=== PATIENT | female | born 1940 | race Caucasian/White ===

== ENCOUNTER 2016-07-16 10:00 | Inpatient (IN) | payer MEDICARE, BC ==
[~2016-07-16] VITALS: Ht 157.5 cm; Wt 72.9 kg
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
--- NOTE | ~2016-07-16 | HP ---
PATIENT'S NAME: ISRA COOK [facility] AGE: 76 Y [address] ROOM: G6303 [place], [place] [address] LOCATION: GPCU ADMIT DATE: 07/16/2016 History & Physical DISCHARGE DATE: FAMILY PHYSICIAN: PHYSICIAN, UNKNOWN ATTENDING PHYSICIAN: WALLY MORALES DATE OF SERVICE: CHIEF COMPLAINT: History of fall and rapid heart rate. HISTORY OF PRESENT ILLNESS: This is a 76-year-old female who was transferred from [facility] for higher level of care. As per history obtained from the patient and the referring physician, the patient had a presyncopal episode about 2 days ago. She was not lightheaded prior to the fall. She did not hit her head or lose consciousness at that point of time. The patient was then taken to [facility] where a CT head was done and was found to be normal. The patient was admitted for a couple of days at [facility]. Last morning, the patient ended up developing atrial fibrillation with rapid ventricular rate. She was placed on a Cardizem drip at that point of time to control her heart rate. The patient then developed hypotension. Since the patient was not doing well, the patient was transferred to [facility] for higher level of care. At the time of my examination, the patient states that she did have palpitations earlier this morning, but that is now resolved. She complains of slight shortness of breath. She is currently on 1-2 L of oxygen via nasal cannula. Denies any head trauma or loss of consciousness. She states that she was lightheaded when she had a syncopal episode 2 days ago. Denies any abdominal pain, denies diarrhea or constipation, denies fever or cough, denies any other complaints. She has a history of rheumatoid arthritis. No other complaints at this point in time. REVIEW OF SYSTEMS: A 10-point review of systems was done and was otherwise negative except as mentioned above. HOME MEDICATIONS: Per [facility]. FAMILY HISTORY: Father with heart disease, sister with unknown cancer, and brother with heart disease. PATIENT'S NAME: ISRA COOK [facility] AGE: 76 Y [address] ROOM: G[address] [place], [place] [address] LOCATION: GPCU ADMIT DATE: 07/16/2016 History & Physical DISCHARGE DATE: FAMILY PHYSICIAN: PHYSICIAN, UNKNOWN ATTENDING PHYSICIAN: WALLY MORALES PAST SURGICAL HISTORY: 1. Bilateral TKA. 2. Cholecystectomy. 3. Hysterectomy. 4. Right cataract insertion. PAST MEDICAL HISTORY: 1. Hypertension. 2. History of irregular heart rhythm. 3. Rheumatoid arthritis. 4. GERD. SOCIAL HISTORY: Denies smoking or alcohol use currently. She stays independently. PHYSICAL EXAMINATION: VITAL SIGNS: Temperature 97.6, pulse 102 and irregular, respirations 16, blood pressure 183/87, and saturation 93% on 2 L nasal cannula oxygen. GENERAL: The patient is alert and oriented x3. Answers all questions appropriately, in no acute distress. HEENT: Head: Normocephalic, atraumatic. Pupils equal, round, reactive to light. Extraocular muscles are intact. Oropharynx moist. NECK: Supple. No nuchal rigidity. HEART: Tachycardic. Irregular rhythm. LUNGS: Clear to auscultation bilaterally. ABDOMEN: Soft, nontender, and nondistended. Bowel sounds are present. EXTREMITIES: No clubbing, cyanosis, or edema. VASCULAR: Pulses 2+ distally bilaterally. NEUROLOGIC: The patient is alert and oriented x3. Pupils are equal, round, and reactive to light bilaterally. The patient recently had cataract surgery about 3 weeks ago. Cranial nerves 2 through 12 grossly intact. Deep tendon flexes 2+/4. Gait not assessed. Strength 5/5, bilateral upper and lower extremities. DIAGNOSTIC STUDIES: Studies were reviewed from the referral hospital. The patient had a CMP on 07/16/2016 that showed sodium 134, potassium 4.1, chloride 99, bicarb 25, glucose 141, BUN 21, creatinine 1.09, calcium 8.9, total protein 6.6, albumin 3.0, alkaline phosphatase 120, ALT 22, AST 38, total bilirubin 1.0, and GFR 49. Magnesium 1.4 CPK 278, CK-MB 0.9, TSH 2.12. A CBC showed a white count of 9.9, hemoglobin 11.3, hematocrit 32.8, and platelets 230. EKG showed atrial flutter/tachycardia with a rapid ventricular response and a rate of 173 beats per minute. Troponin I less than 0.05. The patient had a CT head done when she presented at the referral hospital now. CT head showed no acute intracranial abnormality, age-appropriate cerebral atrophy with minor chronic PATIENT'S NAME: ISRA COOK [facility] AGE: 76 Y [address] ROOM: [address] [place] [address] LOCATION: GPCU ADMIT DATE: 07/16/2016 History & Physical DISCHARGE DATE: FAMILY PHYSICIAN: PHYSICIAN, UNKNOWN ATTENDING PHYSICIAN: WALLY MORALES microvascular ischemic gliosis in the periventricular white matter was noted. Studies were done at [facility]: A 2D echocardiogram was done that showed normal left ventricular contractility with ejection fraction of more than 60% and grade 1 diastolic dysfunction noted. CPK 228, troponin I less than 0.04, proBNP 770. CBC showed a white count of 11.4, hemoglobin 12.3, hematocrit 37.9, and platelets 282. CMP showed sodium 137, potassium 4.2, chloride 98, bicarb 27, BUN 17, creatinine 1.1, and glucose 116. Calcium 9.6, total protein 7.4, albumin 3.6, AST 36, ALT 23, alkaline phosphatase 141, and total bilirubin 1.1. Magnesium 1.6, anion gap 16.2, globulin 3.8, GFR 48. PT 10.3, INR 1.0, and PTT 26. UA showed specific gravity 1.005, pH of 6.5, otherwise negative. CK-MB 1.3. D-dimer elevated at 0.88. V/Q scan pending at this point of time. Chest x-ray was done on admission and after PICC line placement as well and showed PICC line in place, mild elevation of the right hemidiaphragm noted, no vascular congestion or acute infiltrate was noted. EKG done at [facility] initially showed sinus tachycardia with a rate of 113 beats per minute and no acute ST changes, this was repeated later when the patient had tachycardia and showed sinus tachycardia. ASSESSMENT AND PLAN: A 76-year-old female presenting with paroxysmal atrial fibrillation and tachycardia. 1. Status post fall. The patient had a fall. Unsure if the fall was related to paroxysmal atrial fibrillation. A CT head is negative. This was the presyncopal fall. 2. History of rheumatoid arthritis. Continue home medication. 3. Paroxysmal atrial fibrillation. The patient has history of paroxysmal atrial fibrillation, she has been flipping in and out of atrial fibrillation. She has atrial fibrillation with rapid ventricular rate. She was placed on Cardizem drip. I will utilize Cardizem drip for now. She also received a loading dose of digoxin. Monitor closely for now. Cardiology consult will be obtained for the patient. 4. Presyncopal episode. We will also obtain a carotid Doppler for the patient. CT head is negative. 2D echo has been done. This likely appears to be likely secondary to a cardiac cause. 5. Hypotension. Hypotension resolved with IV fluids. Monitor closely. 6. Code status. Full code discussed with the patient at the time of admission. 7. Hypomagnesemia. I will replace magnesium. 8. Hyperkalemia. The patient had presented with hyperkalemia at the referral hospital. Over the past couple of days, hyperkalemia has resolved. Monitor BMP. PATIENT'S NAME: ISRA COOK [facility] AGE: 76 Y [address] ROOM: [place] [address] [facility] ADMIT DATE: 07/16/2016 History & Physical DISCHARGE DATE: FAMILY PHYSICIAN: PHYSICIAN, UNKNOWN ATTENDING PHYSICIAN: WALLY MORALES WALLY MORALES MD MT/roslyn /[id number] D: [id number] T: [id number] HISTORY & PHYSICAL
--- NOTE | ~2016-07-16 | ENPV ---
Vascular Lower Extremities DVT Study Procedure Demographics Patient Name ISRA COOK Date of Study 07/17/2016 Patient Number [id number] Gender Female Date of 1940 Age 76 Visit Number [id number] Height 62 Accession Number [id number] Weight 160 Referring Neisha Kearney MD Physician Liana De Paz APRN Physician Physician Ordering Gebremicheal Stone Gluer Physician [employer] Chief Creative Officer Olamide Arias, RT,RVT,RDCS Meliton Olsen Conclusions Summary No evidence of deep vein thrombosis or superficial thrombophlebitis in the lower extremities bilaterally . Procedure Type of Study: Veins:Lower Extremities DVT Study, Venous Duplex Lower Extremity Bilateral. Indications for Study:Pulmonary embolism. Appropriate Use Criteria:8 Patient Status:STAT. Study Location:Inpatient Portable. Technical Quality:Good visualization. Velocities are measured in cm/s ; Diameters are measured in cm Right Lower Extremities DVT Study Measurements Right 2D and Doppler Measurements + + + + +------+------+ + !Location !Visualized!Compressibility!Thrombosis!Signal!Reflux!Reflux ! ! ! ! ! ! ! !(sec) ! + + + + +------+------+ + !GSV Thigh !Yes !Yes !None !Phasic! ! ! + + + + +------+------+ + !Common !Yes !Yes !None !Phasic! ! ! !Femoral ! ! ! ! ! ! ! + + + + +------+------+ + !Prox !Yes !Yes !None !Phasic! ! ! !Femoral ! ! ! ! ! ! ! + + + + +------+------+ + !Mid Femoral!Yes !Yes !None !Phasic! ! ! + + + + +------+------+ + !Dist !Yes !Yes !None !Phasic! ! ! !Femoral ! ! ! ! ! ! ! + + + + +------+------+ + !Popliteal !Yes !Yes !None !Phasic! ! ! + + + + +------+------+ + !Gastroc !Yes !Yes !None ! ! ! ! + + + + +------+------+ + !PTV !Yes !Yes !None ! ! ! ! + + + + +------+------+ + !Peroneal !Yes !Yes !None ! ! ! ! + + + + +------+------+ + Left Lower Extremities DVT Study Measurements Left 2D and Doppler Measurements + + + + +------+------+ + !Location !Visualized!Compressibility!Thrombosis!Signal!Reflux!Reflux ! ! ! ! ! ! ! !(sec) ! + + + + +------+------+ + !GSV Thigh !Yes !Yes !None !Phasic! ! ! + + + + +------+------+ + !Common !Yes !Yes !None !Phasic! ! ! !Femoral ! ! ! ! ! ! ! + + + + +------+------+ + !Prox !Yes !Yes !None !Phasic! ! ! !Femoral ! ! ! ! ! ! ! + + + + +------+------+ + !Mid Femoral!Yes !Yes !None !Phasic! ! ! + + + + +------+------+ + !Dist !Yes !Yes !None !Phasic! ! ! !Femoral ! ! ! ! ! ! ! + + + + +------+------+ + !Popliteal !Yes !Yes !None !Phasic! ! ! + + + + +------+------+ + !Gastroc !Yes !Yes !None ! ! ! ! + + + + +------+------+ + !PTV !Yes !Yes !None ! ! ! ! + + + + +------+------+ + !Peroneal !Yes !Yes !None ! ! ! ! + + + + +------+------+ + Signature dtt: JERAD GREEN dtd: 07/17/16 1508 Physician Self Edjanene
--- NOTE | ~2016-07-16 | ECHO ---
Transthoracic Echocardiography Report (TTE) Demographics Patient Name ISRA COOK Date of Study 07/16/2016 Patient Number [id number] Visit Number [id number] Date of 1940 Room Number G6303 Accession Number [id number] Gender Female Age 76 year(s) Referring Neisha Dorsey MD [employer] Stanton Fu Physician Physician Interpreting [employer] Rn Care Coordinator Physician Rishi Supervising Ordering Physician Neisha Dorsey MD, MD/P Nurse Stress Clinician Oncology Conclusions Contractility Score Summary Normal Left Ventricular contractility was noted. Summary Technically difficult study with suboptimal images. Patient was tachycardic during the study Overall left ventricle appears hyperdynamic with estimated ejection fraction > 60%;. Diastolic assessment reveals Grade I diastolic dysfunction. IVC measures 1.68 cm with inspiratory collapse. Procedure Type of Study TTE procedure:2D Echocardiogram, M-Mode, Doppler , Color Doppler. Procedure Date Date: 07/16/2016 Start: 01:09 PM Study Location: Inpatient Portable Technical Quality: Adequate visualization Indications:CHF and Atrial fibrillation. Patient Status: Routine HR: 102 bpm BP: 147/90 mmHg M-Mode/2D Measurements LV Diastolic Dimension: 4.6 cm LV Systolic Dimension: 2.91 cm LV Septum Diastolic: 0.75 cm LV PW Diastolic: 0.85 cm AO Root Dimension: 2.8 cm Cardiac Output: 6.6 l/min LA Dimension: 2.6 cm EF Estimated: 60 % LVOT: 2 cm LVOT VTI: 20.6 cm RV Base: 2.74 cm LV Stroke volume: 64.68 ml RV Length: 6.23 cm TAPSE: 1.35 cm TDI-S': 19.5 cm/s Doppler Measurements AV Peak Velocity: 1.54 m/s MV Peak E-Wave: 0.53 m/s AV Peak Gradient: 9.49 mmHg MV Peak A-Wave: 0.88 m/s AV Mean Gradient: 6 mmHg MV E/A Ratio: 0.6 LVOT Peak Velocity: 1.41 m/s MV P1/2t: 55 msec TR Gradient:6.66 mmHg Estimated RAP:8 mmHg Estimated PASP: 14.66 mmHg Estimated RVSP: 15 mmHg A' Septal Velocity: 0.1 m/s E' Septal Velocity: 0.04 m/s A' Lateral Velocity: 0.11 m/s E' Lateral Velocity: 0.09 m/s Findings Left Ventricle The left ventricle is normal in size . Diastolic assessment reveals Grade I diastolic dysfunction. Right Ventricle Normal right ventricle structure and function. Left Atrium Normal left atrial size. Right Atrium Normal right atrial size. IVC measures 1.68 cm with inspiratory collapse. Mitral Valve Mild mitral regurgitation by color Doppler. Mild mitral annular calcification. Aortic Valve Normal aortic valve structure and function. Tricuspid Valve Trivial tricuspid regurgitation by color Doppler. Pulmonic Valve Normal pulmonic valve structure and function. Pericardial Effusion No evidence of pericardial effusion. Miscellaneous The ascending aorta maximum diameter measures 3.2 cm. Pleural Effusion No evidence of pleural effusion. Contractility Score LV regional wall motion:(0-Non visualized 1-Normal 2-Hypokinesis 3-Akinesis 4-Dyskinesis 5-Aneurysm) Signature dtt: RISHI PA dtd: 07/16/16 1309 Physician Self Edit
--- NOTE | ~2016-07-16 | DS ---
PATIENT'S NAME: ISRA COOK [facility] AGE: 76 Y [address] ROOM: [place] [address] LOCATION: GPCU ADMIT DATE: 07/16/2016 Discharge Summary DISCHARGE DATE: 07/19/2016 FAMILY PHYSICIAN: Katt Gaines APRN ATTENDING PHYSICIAN: Poncho Driver PRINCIPAL DIAGNOSES: 1. New-onset atrial fibrillation with rapid ventricular rate. 2. Presyncope. 3. Hypertension. 4. Nocturnal hypoxia. BRIEF HOSPITAL COURSE: The patient is a 76-year-old female who is admitted from [place] after she initially presented there with presyncopal episode and was noted to be hypertensive; and upon examination, she was found to be in atrial fibrillation with rapid ventricular rate. The patient was admitted and initially started on a Cardizem drip for rate control and was evaluated by Cardiology and at the same time was also started on a heparin for anticoagulation. The patient was subsequently started on sotalol per tire inspector's recommendation and overnight converted into a sinus rhythm. The patient has been observed after she converted into a sinus rhythm overnight and has maintained sinus rhythm. The patient was able to get up and walk around without symptoms of syncope, dizziness, or lightheadedness. The patient today denies any chest pain, shortness of breath, dizziness, lightheadedness as well while at rest. She had been started on Xarelto for AFib prophylaxis as well as PE. The patient was evaluated with a V/Q scan for PE for possibly explaining the trigger for the atrial fibrillation and the V/Q scan showed [id number] probability for PE. Considering the patient is needing long-term anticoagulation, we have gone ahead and treated her with Xarelto for PE treatment, which after 21 days will be the same as AFib stroke prophylaxis dose. I have had a lengthy discussion with the patient explaining the risks and benefits of being on a blood thinner and the patient was fully aware of signs and symptoms of any potential brain bleed. The patient is being discharged in stable condition. DISPOSITION: Home. FOLLOW UP: She will follow up with Dr. Jesus, Cardiology, next week. Greater than 30 minutes were spent in discharge planning. JACOB LINDQUIST MD PATIENT'S NAME: ISRA COOK [facility] AGE: 76 Y [address] ROOM: [address] [place] [address] [facility] ADMIT DATE: 07/16/2016 Discharge Summary DISCHARGE DATE: 07/19/2016 FAMILY PHYSICIAN: Katt Gaines APRN ATTENDING PHYSICIAN: Poncho Driver/roslyn /[id number] d: 07/19/16 225 t: 08/05/16 0927, DISCHARGE SUMMARY
--- NOTE | ~2016-07-16 | PUL ---
PATIENT'S NAME: ISRA COOK [facility] AGE: 76 Y [address] ROOM: [address] [address] LOCATION: GPCU ADMIT DATE: 07/16/2016 Pulmonary DISCHARGE DATE: 07/19/2016 FAMILY PHYSICIAN: Katt Gaines APRN ATTENDING PHYSICIAN: Poncho Driver NAME OF PROCEDURE: Overnight Pulse Oximetry DATE OF PROCEDURE: July 18 to July 19, 2016 REASON FOR EXAM: Nocturnal hypoxemia RESULTS: The test was started on room air, but supplemental oxygen at 1 liter/minute was added approximately 3 hours and a half into the study. The recording time was 9 hours, 37 minutes, and 4 seconds, with a total valid sampling time of 9 hours, 23 minutes and 44 seconds. The highest pulse was 74, lowest pulse was 56, with a mean pulse of 63. The highest SpO2 was 99%, lowest SpO2 was 78%, with a mean SpO2 of 92.1%. The patient spent 1 hour, 59 minutes, and 40 seconds with SpO2 less than 89%, representing 21.2% of the total sleep time. The desaturation event index was elevated at 15.6. PHYSICIAN INTERPRETATION: The patient has evidence of significant nocturnal hypoxia and would qualify for supplemental oxygen as per Medicare criteria. However, because of the severity of her nocturnal hypoxia with an elevated desaturation event index a sleep study is recommended at this time. MD PETAR LEYVA/stacia /[id number] dtt: 07/23/16 1401 , KIRTI CASAREZ dtd: 07/23/16 1149
--- NOTE | ~2016-07-16 | ECHO ---
Transthoracic Echocardiography Report (TTE) Demographics Patient Name ISRA COOK Date of Study 07/17/2016 Patient Number [id number] Visit Number [id number] Date of 1940 Room Number G6303 Accession Number [id number] Gender Female Age 76 year(s) Referring Edin Weaver MD Yard Caller Vickie Alexis Physician Neisha Olsen Physician Interpreting Edin Weaver MD Administrative Coordinator Physician Supervising Ordering Physician Edin Weaver MD, MD/MLP Nurse Stress Rent Control Office Manager Conclusions Contractility Score Summary Normal Left Ventricular contractility was noted. Summary The estimated left ventricular ejection fraction is 65%. The left ventricle is normal in size . Diastolic assessment reveals Grade I diastolic dysfunction. There is mild aortic regurgitation by color Doppler. Mild tricuspid regurgitation by color Doppler. Procedure Type of Study TTE procedure:2D Echocardiogram, M-Mode, Doppler , Color Doppler. Procedure Date Date: 07/17/2016 Start: 08:54 AM Study Location: Inpatient Portable Technical Quality: Adequate visualization Indications:Paroxysmal a-fib. Appropriate Use Criteria: 9 Patient Status: Routine HR: 69 bpm BP: 126/79 mmHg M-Mode/2D Measurements LV Diastolic Dimension: 4.6 cm LV Systolic Dimension: 2.62 cm LV Septum Diastolic: 1 cm LV PW Diastolic: 0.91 cm AO Root Dimension: 2.6 cm Cardiac Output: 5.31 l/min AV Cusp Separation: 2 cm RV Diastolic Dimension: 3.67 cm LA volume: 42 ml LVOT: 2 cm RV Base: 3.28 cm LVOT VTI: 24.5 cm RV Mid: 2.89 cm LV Stroke volume: 76.93 ml TAPSE: 1.98 cm TDI-S': 12.5 cm/s Doppler Measurements AV Peak Velocity: 1.39 m/s MV Peak E-Wave: 0.61 m/s AV Peak Gradient: 7.73 mmHg MV Peak A-Wave: 0.84 m/s AV Mean Gradient: 4 mmHg MV E/A Ratio: 0.72 LVOT Peak Velocity: 1.16 m/s MV P1/2t: 63 msec AV P1/2t: 453 msec TR Gradient:31.58 mmHg PV Peak Velocity: 0.76 m/s Estimated RAP:3 mmHg PV Peak Gradient: 2.33 mmHg Estimated RVSP: 35 mmHg Estimated PASP: 34.58 mmHg E' Septal Velocity: 0.06 m/s A' Septal Velocity: 0.08 m/s E' Lateral Velocity: 0.06 m/s A' Lateral Velocity: 0.12 m/s Findings Left Ventricle The left ventricle is normal in size . Diastolic assessment reveals Grade I diastolic dysfunction. Right Ventricle Mildly dilated right ventricle. Left Atrium Normal left atrial size. Right Atrium Normal right atrial size. IVC measures 1.51 cm with inspiratory collapse. Mitral Valve Mild mitral regurgitation by color Doppler. Aortic Valve There is mild to moderate aortic regurgitation by color Doppler. Tricuspid Valve Mild-moderate tricuspid regurgitation by color Doppler. There is mild pulmonary hypertension. The pulmonary pressure (RVSP) is 32 mmHg. Pulmonic Valve Normal pulmonic valve structure and function. Pericardial Effusion No evidence of pericardial effusion. Miscellaneous Visualized portions of the aortic root and ascending aorta appear normal in size. Pleural Effusion No evidence of pleural effusion. Contractility Score LV regional wall motion:(0-Non visualized 1-Normal 2-Hypokinesis 3-Akinesis 4-Dyskinesis 5-Aneurysm) Signature dtt: Owen Jesus (cardio) dtd: 07/17/16 0854 Physician Self Edit
--- NOTE | 2016-07-16 12:42 | NUR ---
Pt is 76 y/o female admit for afib w rvr for hospitalist. Cardiology consult. No allergies. Resides at home by herself. Hx gerd,heartburn,htn,constipation, leaking/dribbling,irreg rhythm,neuropathy feet. Pt alert and oriented x3. Came from [facility] via flight. PT states she got out of bed Thursday morning and fell. Denies being lightheaded or dizzy.
[2016-07-16 13:31] LABS: BASOPHIL # 0.1 K/uL (0.0-0.2); BASOPHIL % 0.6 %; EOSINOPHIL # 0.2 K/uL (0.0-0.5); EOSINOPHIL % 1.7 %; HEMATOCRIT 37.9 % (33.0-46.0); HEMOGLOBIN 12.3 g/dL (10.0-15.0); IMMATURE GRANULOCYTE # 0.1 K/uL (0.0-0.3); IMMATURE GRANULOCYTE % 0.4 %; LYMPHOCYTE # 2.8 K/uL (0.8-4.0); LYMPHOCYTE % 24.4 %; MCH 30.5 pg (27.0-34.0); MCHC 32.5 gm/dL (32.0-36.5); MONOCYTE # 0.8 K/uL (0.0-1.0); MONOCYTE % 6.6 %; MPV 9.9 fl (9.4-12.4); NEUTROPHIL # (ANC) 7.6 K/uL (1.8-7.8); NEUTROPHIL % 66.3 %; NRBC % 0 /100WBC (0-0.00); PLATELET COUNT 282 K/uL (150-450); RBC 4.03 M/uL (3.50-5.50); RDW-CV 14.2 % (11.9-14.6); WBC 11.4 K/uL (4.0-11.0)
[2016-07-16 13:41] LABS: PROTIME 10.3 SECONDS (9.6-11.1); PTT 26 SECONDS (25-32)
[2016-07-16] MEDS ORDERED: THERMOTABS TAB1 EACH PO (13:47)
[2016-07-16] MEDS ORDERED: ONDANSETRON ODT4 MG PO (13:48)
[2016-07-16] MEDS ORDERED: MS CONTIN15 MG PO (13:48)
[2016-07-16] MEDS ORDERED: CLINORIL200 MG PO (13:48)
[2016-07-16 13:49] LABS: ALBUMIN 3.6 gm/dL (3.5-5.0); ALK PHOS 141 IU/L (33-138); ALT 23 IU/L (12-78); ANION GAP 16.2 (10.0-19.0); AST 36 IU/L (10-40); BLOOD UREA NITROGEN 17 mg/dL (6-24); CALCIUM 9.6 mg/dL (8.5-10.5); CHLORIDE 98 mMol/L (96-110); CO2 27 mMol/L (22-32); CPK 228 IU/L (21-215); CREATININE 1.1 mg/dL (0.5-1.1); ESTIMATED GFR (MDRD EQUATION) 48; MAGNESIUM 1.6 mg/dL (1.3-2.6); POTASSIUM 4.2 mMol/L (3.7-5.1); SODIUM 137 mMol/L (135-145); TOTAL BILIRUBIN 1.1 mg/dL (0.0-1.5); TOTAL PROTEIN 7.4 g/dL (6.0-8.4)
[2016-07-16] MEDS ORDERED: LASIX20 MG PO ×2 (13:49→13:50)
[2016-07-16] MEDS ORDERED: XANAX0.5 MG PO (13:49)
[2016-07-16] MEDS ORDERED: NEURONTIN300 MG PO (13:50)
[2016-07-16] MEDS ORDERED: THERAGRAN-M1 TAB PO (13:50)
[2016-07-16] MEDS ORDERED: TOPROL XL 5050 MG PO (13:51)
[2016-07-16] MEDS ORDERED: TYLENOL325 MG PO (13:51)
[2016-07-16] MEDS ORDERED: VITAMIN D250000 UNIT PO (13:52)
[2016-07-16] MEDS ORDERED: ACID REDUCER150 MG PO (13:52)
[2016-07-16] MEDS ORDERED: AMBIEN10 MG PO (13:53)
[2016-07-16] MEDS ORDERED: COZAAR25 MG PO (13:56)
[2016-07-16] MEDS ORDERED: RESTASIS1 EACH OPHTH (14:00)
[2016-07-16] MEDS ORDERED: PRED FORTE 1%5 ML OPHTH (14:02)
[2016-07-16 16:21] LABS: BILIRUBIN URINE NEGATIVE (NEGATIVE); BLOOD URINE NEGATIVE /UL (NEGATIVE); GLUCOSE URINE NEGATIVE (NEGATIVE); KETONE URINE NEGATIVE (NEGATIVE); LEUKOCYTES URINE NEGATIVE /UL (NEGATIVE); NITRITE URINE NEGATIVE (NEGATIVE); PH URINE 6.5 (4.0-8.0); PROTEIN URINE NEGATIVE (NEGATIVE); SPEC GRAVITY URINE 1.005 (1.003-1.035); UROBILINOGEN URINE NORMAL (NORMAL)
[2016-07-16 16:33] LABS: COLOR URINE YELLOW (YELLOW); TURBIDITY URINE CLEAR (CLEAR)
--- NOTE | 2016-07-16 16:51 | NUR ---
Patient is alert and oriented x3. Patient sinus rhythm, 90s upon admission. 1345 patient went into afib RVR 170s. Patient was asymptomatic other than palpitations. BPs stable during RVR. Dr. Driver at bedside. Once IV access was established, cardizem bolus and drip given. Patient currently in and out of afib and sinus. Heparin drip started. Next HP at 2230. PICC line placed. Mag given. Patient down for VQ scan. Patient up to bedside commode when HR is within normal limits. Tolerates well with one assist.
--- NOTE | 2016-07-17 04:38 | NUR ---
Patient A/Ox3. VSS on RA. Up standby assist to bedside commode. Lungs clear. Bowel sounds present, nausea x1/zofran x1 with relief. Heparin gtt continues. NS at 70ml/hr. PICC to Rt upper arm. IV to LT wrist SL. Cardizem off at 2200. Sinus HR 60-70. Had VQ scan and may need a CT for PE protocol but is allergic to shellfish. Continue plan of care.
--- NOTE | 2016-07-17 11:44 | NUR ---
Introduced self and role of care management to patient and family. She lives in [place] by herself. She states that she is able to do all her own ADL's. She has "lots" of family and friends that are available to assist as needed. She plans on returning home on dicharge. She denies any needs at this time. Will continue to follow.
--- NOTE | 2016-07-17 17:10 | NUR ---
Significant Event:UP TO COMMODE WITH SBA TO COMMODE. BILATERAL VENOUS DOPPLERS DONE THIS AFTERNOON. LOPRESSOR CHANGED FROM QID TO BID WITH PARAMETERS AND STARTED ON BETAPACE. DENIES PAIN THIS SHIFT. FAMILY AT BEDSIDE MOST OF SHIFT. DRESSING CHANGED TO PICC LINE IN RIGHT UPPER ARM THIS AFTERNOON. Follow up:POSSIBLE DISCHARGE TOMORROW
--- NOTE | 2016-07-18 04:23 | NUR ---
Significant Event: A/O x3. Afebrile. Denies pain. VSS on RA. LS clear/dim. R) upper picc line with ns @ 70ml/hr, Heparin gtt @ 800/hr. Next PTT-HP @ 0715 in am. SBP 110s-120s. HR 60-70s. Up to bedside commode 1 assist. Cooperative with cares. Follow up: Possible discharge today. Continue to monitor per plan of care.
[2016-07-18 04:24] LABS: BASOPHIL # 0.1 K/uL (0.0-0.2); BASOPHIL % 0.7 %; EOSINOPHIL # 0.5 K/uL (0.0-0.5); EOSINOPHIL % 5.6 %; HEMATOCRIT 31.5 % (33.0-46.0); HEMOGLOBIN 10.1 g/dL (10.0-15.0); IMMATURE GRANULOCYTE # 0.1 K/uL (0.0-0.3); IMMATURE GRANULOCYTE % 1.4 %; LYMPHOCYTE # 3.9 K/uL (0.8-4.0); LYMPHOCYTE % 43.3 %; MCH 30.7 pg (27.0-34.0); MCHC 32.1 gm/dL (32.0-36.5); MCV 95.7 fl (83.0-98.0); MONOCYTE # 0.6 K/uL (0.0-1.0); MONOCYTE % 6.5 %; MPV 9.9 fl (9.4-12.4); NEUTROPHIL # (ANC) 3.9 K/uL (1.8-7.8); NEUTROPHIL % 42.5 %; NRBC % 0 /100WBC (0-0.00); RBC 3.29 M/uL (3.50-5.50); RDW-CV 14.1 % (11.9-14.6); WBC 9.1 K/uL (4.0-11.0)
[2016-07-18 04:26] LABS: PLATELET COUNT 204 K/uL (150-450)
[2016-07-18 04:37] LABS: ALBUMIN 2.8 gm/dL (3.5-5.0); ANION GAP 10.8 (10.0-19.0); BLOOD UREA NITROGEN 11 mg/dL (6-24); CALCIUM 8.7 mg/dL (8.5-10.5); CHLORIDE 103 mMol/L (96-110); CO2 30 mMol/L (22-32); CREATININE 0.9 mg/dL (0.5-1.1); MAGNESIUM 1.4 mg/dL (1.3-2.6); PHOSPHORUS 3.4 mg/dL (2.5-4.9); POTASSIUM 3.8 mMol/L (3.7-5.1); SODIUM 140 mMol/L (135-145)
[2016-07-18 04:42] LABS: ESTIMATED GFR (MDRD EQUATION) > 60
--- NOTE | 2016-07-18 16:40 | NUR ---
Significant Event: PATIENT A/O X3. VS STABLE ON RA. VENOUS DOPPLER STUDY TO LOWER EXTREMITIES WAS NEGATIVE. HEPARIN GTT D'CD THIS SHIFT. IV FLUIDS D'CD. STARTED ON XARELTO. PATIENT UP TO CHAIR THIS SHIFT. NO COMPLAINS OF PAIN. DENIES NUMBNESS OR TINGLING TO EXTREMITIES. PATIENT 1 ASSIST GAIT BELT TRANSFER. PT/OT ORDERS. ON CARDIAC DIET. 2 LUMEN PICC TO R) UPPER ARM SL, FLUSHES WELL GOOD BLOOD RETURN. PERIPHERAL IV TO L) WRIST. MAGNESIUM SULFATE INFUSED THIS SHIFT. PATIENT PLEASANT AND COOPERATIVE WITH CARES. FAMILY SUPPORTIVE AT BEDSIDE. Follow up:
[2016-07-19 03:18] LABS: BASOPHIL # 0.1 K/uL (0.0-0.2); BASOPHIL % 0.9 %; EOSINOPHIL # 0.5 K/uL (0.0-0.5); EOSINOPHIL % 4.8 %; HEMATOCRIT 31.9 % (33.0-46.0); HEMOGLOBIN 10.4 g/dL (10.0-15.0); IMMATURE GRANULOCYTE # 0.1 K/uL (0.0-0.3); LYMPHOCYTE # 3.5 K/uL (0.8-4.0); LYMPHOCYTE % 37.7 %; MCH 30.9 pg (27.0-34.0); MCHC 32.6 gm/dL (32.0-36.5); MCV 94.7 fl (83.0-98.0); MONOCYTE # 0.7 K/uL (0.0-1.0); MONOCYTE % 7.4 %; NEUTROPHIL # (ANC) 4.5 K/uL (1.8-7.8); NEUTROPHIL % 48.2 %; NRBC % 0 /100WBC (0-0.00); PLATELET COUNT 208 K/uL (150-450); RBC 3.37 M/uL (3.50-5.50); RDW-CV 14.1 % (11.9-14.6); WBC 9.4 K/uL (4.0-11.0)
[2016-07-19 03:19] LABS: BLOOD UREA NITROGEN 10 mg/dL (6-24); CHLORIDE 99 mMol/L (96-110); CO2 31 mMol/L (22-32); CREATININE 0.9 mg/dL (0.5-1.1); ESTIMATED GFR (MDRD EQUATION) > 60; PHOSPHORUS 4.3 mg/dL (2.5-4.9); SODIUM 138 mMol/L (135-145)
[2016-07-19 03:20] LABS: ANION GAP 12.1 (10.0-19.0); MAGNESIUM 1.7 mg/dL (1.3-2.6); POTASSIUM 4.1 mMol/L (3.7-5.1)
--- NOTE | 2016-07-19 04:57 | NUR ---
ADMITTED FOR AFIB W/RVR, ON TELE AND STABLE THIS SHIFT. VSS, PATIENT ON TREND OX OVERNIGHT AND WAS PLACED ON 1L O2 PER NC FOR SATS <84%. BLE TRACE EDEMA, DL BARD SOLO PICC TO RAC DSG CHANGED 07/17 W/SIGNIFICANT BLOOD UNDER DSG DUE TO PATIENT BEING ON A HEPARIN GTT YESTERDAY AND PATIENT ALSO HAD LEFT WRIST PIV SALINE LOCKED. CHRONIC PAIN CONTROLLED WITH MS CONTIN LD@2130 WITH GOOD RESULTS. SIGNIFICANT HX OF FALLS AND REQUIRES 1 SBA TO THE BATHROOM. PLAN TO DC HOME ON DISCHARGE.
[2016-07-19] MEDS ORDERED: XARELTO15 MG PO (11:54)
[2016-07-19] MEDS ORDERED: XARELTO20 MG PO (11:56)
[2016-07-19] MEDS ORDERED: SOTALOL80 MG PO (11:57)
--- NOTE | 2016-07-19 14:45 | NUR ---
D:Patient is anxious to go home. Granddaughter is going to be taking patient home. She the patient's prescriptions and go them filled. Patient is dressed, off monitor. PICC and PIV have been dc'd. Tip has given the patient a paper with the number for the people that will be delivering her O2. Patient and granddaughter verbelize understanding of instructions. Patient asks questions. Personal belongings are packed. Discharged at 1345 per wheelchair, per [place] Entrance is released to granddaughter to return home. DC'd at 1345.
== END 2016-07-19 13:45 | disposition disaster alternative care site (69) | DRG 308 ==
LOC: GPCU 11:46
PROVIDERS: Internal Medicine; ADMIT Family Medicine
PROC: 02HV33Z Insertion of Infusion Device into Superior Vena Cava, Percutaneous Approach (ICD-10-PCS; principal; 2016-07-16)
DX: I48.0 Paroxysmal atrial fibrillation (principal); I26.99 Other pulmonary embolism without acute cor pulmonale; I95.9 Hypotension, unspecified; G47.34 Idiopathic sleep related nonobstructive alveolar hypoventilation; M06.9 Rheumatoid arthritis, unspecified; E83.42 Hypomagnesemia; R55 Syncope and collapse; I10 Essential (primary) hypertension; K21.9 Gastro-esophageal reflux disease without esophagitis; W19.XXXA Unspecified fall, initial encounter
CPT/HCPCS: A9270; A9539; A9540; C1751; J1160; J1644; J3475; J7030; J7040; J7050

== ENCOUNTER → 2016-07-16 | Outpatient (CLI) | payer MEDICARE, BC ==
[~2016-07-16] MED LIST: ACID REDUCER150 MG PO; AMBIEN10 MG PO; CLINORIL200 MG PO; COZAAR25 MG PO; LASIX20 MG PO; MAALOX LIQ UNIT30 ML PO; MS CONTIN15 MG PO; NEURONTIN300 MG PO; ONDANSETRON ODT4 MG PO; PRED FORTE 1%5 ML OPHTH; RESTASIS1 EACH OPHTH; SOTALOL80 MG PO; THERAGRAN-M1 TAB PO; THERMOTABS TAB1 EACH PO; TOPROL XL 5050 MG PO; TYLENOL325 MG PO; VITAMIN D250000 UNIT PO; XANAX0.5 MG PO; XARELTO15 MG PO; XARELTO20 MG PO
== END | disposition disaster alternative care site (69) ==
LOC: GAMB 11:30
DX: I48.91 Unspecified atrial fibrillation (principal); I49.9 Cardiac arrhythmia, unspecified
CPT/HCPCS: A0425; A0428

== ENCOUNTER 2016-08-22 18:00 | Observation (INO) | payer MEDICARE, BC ==
[~2016-08-22] VITALS: Ht 160 cm; Wt 70.6 kg
--- NOTE | ~2016-08-22 | ESTC ---
Cardiac Perfusion Imaging Demographics Patient Name JOEY Nam Gender Female Patient Number [id number] Race Visit Number [id number] Ethnicity Corporate ID Room Number G6320 Accession Number [id number] Height 63 inches Date of 1940 Weight 71.3 pounds Interpreting SHAWNA Lopez Heidy Date of study 08/23/2016 Physician Henry Lopez MD Supervising MD/MLP Henry Lopez NM Technologist Roxanne Barajas MD Ordering Physician Ernestina Gray V Stress Pat Barnett RDCS, reliability technicians RVT Stress ECG Reading Henry Lopez Nurse Iglesia Harper MD Procedure Procedure Type: Nuclear Stress Test:Pharmacological, Lexiscan, Cardiolite Stress Test Procedure Start time: 08/23/2016 00:00 Risk Factors The patient risk factors include:dyslipidemia. Conclusions Summary Perfusion Images: The overall quality of the study is good. Left ventricular cavity is noted to be normal on the stress and normal on the rest images. There is no evidence of abnormal lung activity. The right ventricle is not visualized an cannot be assessed. Impression ECG portion of lexiscan stress test is clinically negative for ischemia by diagnostic criteria. Myocardial perfusion imaging is normal. Overall left ventricular systolic function was normal without regional wall motion abnormalities. Calculated LVEF is 88% and TID ratio is 1.11. There are no previous studies for comparison. Stress Protocols Resting ECG Sinus rhythm . Resting HR:65 bpm Resting BP:162/91 mmHg Pre-stress physical exam: s1 s2 rrr clear lungs Stress Protocol:Pharmacologic - Lexiscan Peak HR:108 bpm HR/BP product: Peak BP:186/100 mmHg Predicted HR: 144 bpm % of predicted HR: 75 ECG Findings No ECG changes suggestive of ischemia. < [address] depressions in inferior and V4-6 leads. Arrhythmias No rhythm abnormality. Symptoms Nausea. Headache. Stress Interpretation Appropriate hemodynamic response to Lexiscan. No significant ST-T wave changes with Lexiscan. ECG portion is negative for ischemia by diagnostic criteria. Imaging Results Summed scores - Summed stress score: 16 - Summed rest score: 10 - Summed difference score: 6 Stress ejection Ejection fraction:89 % EDV :27 ml ESV :3 ml Stroke volume :24 ml LV mass :55 gr Imaging Protocols Rest Stress Isotope:Tc99m Sestamibi IV Isotope dose:30.1 mCi Isotope dose:9.95 mCi Date:08/23/2016 09:55 Date:08/23/2016 08:09 Technique: SPECT Technique: Gated Supine SPECT Supine IV remains in place after procedure. Scan Time:30 minutes post injection Scan Time:45-60 minutes post injection Procedure Medications - Regadenoson (Lexiscan) 0.4 mg IV over 10-15 sec. I.V. 0.4 mg. - Zofran I.V. 4 mg. Medical History Admission Data Admission date: 08/22/2016 Admission Time: 18:47 Hospital Status: Inpatient. Signatures dtt: CLYDE HUFFMAN dtd: 08/23/16 0000 Physician Self Edit
--- NOTE | ~2016-08-22 | DS ---
PATIENT'S NAME: ISRA COOK [facility] AGE: 76 Y [address] ROOM: [address] [place], [place] [address] LOCATION: GPCU ADMIT DATE: 08/22/2016 Discharge Summary DISCHARGE DATE: 08/24/2016 FAMILY PHYSICIAN: Physician, Unknown ATTENDING PHYSICIAN: Isaac Do V PRINCIPAL DIAGNOSES: 1. Chest pain, acute coronary syndrome ruled out. 2. Paroxysmal atrial fibrillation. 3. History of pulmonary embolism. 4. Essential hypertension. HOSPITAL COURSE: This is a 76-year-old female with history of hypertension, PE, paroxysmal atrial fibrillation, who presented to the hospital with chest pain and was admitted for chest pain rule out. The patient's initial EKG was nondiagnostic, troponins x3 were negative. The patient also had a Lexiscan stress test, which was negative as well. The patient during her hospital stay had been chest pain free and was able to ambulate without problems. At this point, we will continue the patient's home medications the way they are and discharge the patient and have her follow up with her primary care physician within one week. PHYSICAL EXAMINATION: GENERAL: Awake, alert, oriented x3, in no acute distress. CHEST: Clear to auscultation bilaterally. HEART: S1, S2. Regular rate and rhythm. ABDOMEN: Soft, nontender, nondistended. NEURO: Grossly nonfocal. EXTREMITIES: Without edema. MEDICATIONS: Per MAR. DISPOSITION: Home and will follow up with PCP in 1 week. Less than 30 minutes were spent in discharge planning and facilitating. MD APPLE BAUER/roslyn /[id number] d: 08/25/16 0158 t: 08/25/16 1422, DISCHARGE SUMMARY
--- NOTE | ~2016-08-22 | HP ---
PATIENT'S NAME: ISRA COOK [facility] AGE: 76 Y [address] ROOM: [place] [address] LOCATION: GPCU ADMIT DATE: 08/22/2016 History & Physical DISCHARGE DATE: 08/24/2016 FAMILY PHYSICIAN: PHYSICIAN, UNKNOWN ATTENDING PHYSICIAN: LUIS ANTONIO CABRERA V DATE OF SERVICE: CHIEF COMPLAINT: Dyspnea and chest pain. HISTORY OF PRESENT ILLNESS: The patient is a 76-year-old female with past medical history most significant for recent diagnosis of atrial fibrillation, currently on sotalol and Xarelto. She presented to an outside facility with complaints of approximately 24 to 36 hours of intermittent shortness of breath. Unfortunately, the patient is a very vague historian. She does endorse that she gets some chest pain associated with these episodes of dyspnea. These are precipitated by activity and do not occur at rest. When I asked her what is the intensity of chest pain, she tells me that it is 8/10 in intensity, but "it is not too bad." She also tells me that she is having some discomfort in her neck, but that has been there for 25 years. She denies any pepper palpitations, diaphoresis, near syncope or diarrhea. She was seen in hospital in [place] and had a borderline ST depressions on the EKG and an unremarkable workup otherwise and was sent to [facility] for further evaluation. REVIEW OF SYSTEMS: All 10 systems have been reviewed and are negative aside from pertinent positives mentioned above. PAST MEDICAL HISTORY: As extracted from the chart as the patient is not a very good historian is: 1. Questionable rheumatoid arthritis. 2. Paroxysmal atrial fibrillation, on anticoagulation. 3. Essential hypertension. 4. Questionable osteoporosis. CURRENT MEDICATIONS: 1. Acetaminophen. 2. Xanax. 3. Maalox. 4. Cyclosporine eyedrops. PATIENT'S NAME: ISRA COOK [facility] AGE: 76 Y [address] ROOM: [place] [address] LOCATION: GPCU ADMIT DATE: 08/22/2016 History & Physical DISCHARGE DATE: 08/24/2016 FAMILY PHYSICIAN: PHYSICIAN, UNKNOWN ATTENDING PHYSICIAN: LUIS ANTONIO CABRERA V 5. Ergocalciferol. 6. Furosemide 20 alternating with 40. 7. Gabapentin 300 t.i.d. 8. Losartan 25. 9. Metoprolol succinate 25 daily. 10. MS Contin 15 mg twice a day, presuming that she takes that for her rheumatoid arthritis. 11. Multivitamin daily. 12. Ranitidine 155 mg twice a day. 13. Xarelto 20 mg daily. 14. Thermotab. 15. Sulindac. 16. Zolpidem. FAMILY HISTORY: Significant for coronary artery disease in her father in his 50s. SOCIAL HISTORY: Negative for any history of tobacco or alcohol abuse. PHYSICAL EXAMINATION: VITAL SIGNS: Blood pressure is 157/70, heart rate is in the 70s, saturating 96% on room air, respirations 16. GENERAL APPEARANCE: A well-developed, well-nourished elderly female, in no acute distress. NEUROLOGICAL: Exam is nonfocal. EYES: Show pupils are equal and reactive to light. LYMPHATIC: Shows no cervical lymphadenopathy. ENDOCRINE: Shows no thyromegaly. LUNGS: Clear to auscultation in all nguyen. HEART: Reveals regular rate and rhythm without appreciable murmurs, gallops, or rubs. There is no jugular venous distention or lower extremity edema. GI: Reveals abdomen is soft, nontender, nondistended. : Reveals no costovertebral angle tenderness. VASCULAR: Reveals 2+ pedal pulses. MUSCULOSKELETAL: Does show some small joint changes consistent with osteoarthritis. PSYCHIATRIC: Appropriate mood, cognition, and affect. SKIN: Warm and dry. LABORATORY DATA: Review of studies from the outside facility are unremarkable for any biochemical changes, but she does have EKG, reveals normal sinus rhythm at 55 beats per minute with poor R-wave progression and T-wave inversions in lead III, V2, V4, and V5, which actually concordant with the direction of the QRS PATIENT'S NAME: ISRA COOK [facility] AGE: 76 Y [address] ROOM: [address] [address] LOCATION: GPCU ADMIT DATE: 08/22/2016 History & Physical DISCHARGE DATE: 08/24/2016 FAMILY PHYSICIAN: PHYSICIAN, UNKNOWN ATTENDING PHYSICIAN: LUIS ANTONIO CABRERA. ASSESSMENT AND PLAN: This is a 76-year-old female, who is presenting with atypical angina. We will admit her to the progressive care unit. We will keep her on telemetry. We will get an additional set of cardiac enzymes in the morning. We will put her in for a stress test. 1. Atrial fibrillation. We will continue the patient on her metoprolol and Xarelto. 2. Arthritis. Continue with pain control. 3. Insomnia. Continue with her zolpidem. 4. Essential hypertension. Continue with current regimen. 5. Additional management will depend on clinical course. Time dedicated to this patient's encounter is 25 minutes. MD BEAU AREVALO/roslyn /[id number] D: [id number] T: [id number] HISTORY & PHYSICAL
[~2016-08-22 18:00] MED LIST changes: -MAALOX LIQ UNIT30 ML PO
[2016-08-22 19:22] LABS: CPK 56 IU/L (21-215)
--- NOTE | 2016-08-22 19:30 | NUR ---
Patient is 76 yo female admitted this evening with chest pain which she started to experience this morning early. she states she was unable to take a deep breath and it concerned her. she doctors in [place] and went to the Dr. there. she was then sent to the hospital ER for further evaluation and transferred here. patient has saline lock in right hand without erythema or edema noted at site. Education is given as documented. patient denies questions. pneumatics are on bilat calves. pt mino well. call light is within reach. denies needs. Report is given to JONY Sanchez.
[2016-08-22] MEDS ORDERED: MAALOX LIQ UNIT30 ML PO (20:42)
--- NOTE | 2016-08-22 22:14 | NUR ---
Care assumed at 1945 until 2199 with report given to Lucia Salcedo Rating chest pain 09/17 et abd pain 11/17. 2 mg of morphine given at 2016 with mild relief noted. SBPs 150-170s. Up to bathroom with assist of 1. Dr. Do up to see patient.
[2016-08-23 05:10] LABS: CPK 60 IU/L (21-215)
--- NOTE | 2016-08-23 05:38 | NUR ---
Significant Event: PATIENT A/O X 3, COOPERATIVE WITH CARES. VSS. HR:58-70'S, BP: 120-150/70-80'S, RA, SATS >94%, R: 16-22, AFEBRILE. DENIES CHEST PAIN OVERNIGHT. IV SL TO R)WRIST. RESTED WELL OVERNIGHT. Follow up: NPO FOR STRESS TEST THIS AM
--- NOTE | 2016-08-23 17:03 | NUR ---
Significant Event: AOx3. SBP 188 this a.m. prior to Lexiscan; patient stated she was quite nervous at the time. VS otherwise WNL on room air this shift. Per report, patient was nauseous and vomited during the scan and was given a reversal agent. Patient has denied nausea since returning. Ambulates to restroom with minimal assist and tolerates well. Has rested this afternoon. Pleasant and cooperative. Follow up: Possible dismissal tomorrow.
--- NOTE | 2016-08-24 07:07 | NUR ---
Significant Event: Patient alert and oriented x3. SBP 100s-130s. All other vital signs stable. On RA. Complaints of chronic back/knee pain throughout shift. 650 Tylenol x2 given with relief. Independent in room. No nausea/vomiting/nervousness/worry this shift. Patient calm and cooperative with all cares. Slept on and off. Follow up: D/C home today.
--- NOTE | 2016-08-24 15:31 | NUR ---
DISMISSAL NOTE: AOx3, no c/o pain or discomfort today. SBP 92-110s, VS otherwise WNL on room air. Lungs sound clear. 1+ edema to ankles. Up ad anabelle in room and tolerating well. States feels comfortable going home at this time. Dismissal instructions and medication instructions given with family members present. IV discontinued. Dismissed with family members for transportation home.
== END 2016-08-24 15:00 | disposition disaster alternative care site (69) ==
LOC: GPCU 18:47
PROVIDERS: Internal Medicine; ADMIT Internal Medicine
DX: R07.9 Chest pain, unspecified (principal); I48.0 Paroxysmal atrial fibrillation; I10 Essential (primary) hypertension; K21.9 Gastro-esophageal reflux disease without esophagitis; M19.90 Unspecified osteoarthritis, unspecified site; G47.00 Insomnia, unspecified; Z79.899 Other long term (current) drug therapy
CPT/HCPCS: A9500; C9113; G0378; G0379; J0280; J2270; J2405; J2785